=== PATIENT | male | born 1965 | race Caucasian/White ===

== ENCOUNTER 2021-03-11 14:36 | Outpatient (REF) | payer OTHER, SELFPAY ==
--- NOTE | ~2021-03-11 | US_ITS ---
EXAMINATION: US VENOUS ULTRASOUND WITH DOPPLER LOWER EXTREMITY, LEFT CLINICAL INFORMATION: Pain in left lower leg COMPARISON: None TECHNIQUE: Ultrasound of the deep veins is performed from the hip to the calf with compression sonography and color and pulse Doppler assessment. Spectral analysis with color-flow imaging is performed. FINDINGS: There is thrombus identified in the peroneal and posterior tibial veins and are noncompressible in this region. The thrombus begins at the tibioperoneal trunk and extends distally into the calf. There is normal venous compression and respiratory variation and augmented flow in the remaining portions of the veins. The visualized common femoral vein, superficial femoral vein, profunda femoral vein, popliteal vein shows no evidence of deep venous thrombosis. There is no significant popliteal fossa cyst. If the patient's symptoms persist, followup ultrasound in 5 days 7 days might be of value to exclude proximal propagation from a non-visualized calf vein. US/US venous duplex LE IMPRESSION: Thrombus identified in the peroneal and posterior tibial veins and are noncompressible in this region. Thrombus begins at the tibioperoneal trunk and extends distally into the calf. This critical result was discussed with DR MOLINA by telephone on 03/11/2021 3:52 PM and it was ascertained that the content and urgency of the report was understood at the time of direct communication.
[2021-03-11 15:18] LABS: D Dimer 3355 NG/ML
== END 2021-03-11 14:37 | disposition home or self-care (01) ==
LOC: HO.US 14:36
PROVIDERS: PCP Family Medicine; Visit Provider Family Medicine
DX: M79.662 Pain in left lower leg (principal); M79.89 Other specified soft tissue disorders
CPT/HCPCS: 36415; 85379; 93971

== ENCOUNTER 2021-03-11 16:16 | Emergency (ER) | payer OTHER, SELFPAY ==
[2021-03-11 16:31] VITALS: BP 146/97; PULSE 100; RESP 18; TEMP 36.4; O2SAT 95; BMI 25.7
--- NOTE | 2021-03-11 17:07 | ED.LOWEXIN ---
HPI - Extremity Injury (Lower) General Chief Complaint: Extremity Injury, Lower Stated Complaint: blood clot Time Seen by Provider: 03/11/21 17:07 Source: patient Mode of arrival: ambulatory Limitations: no limitations History of Present Illness HPI Narrative: 55-year-old male came in for evaluation of left leg pain. This is a 55-year-old male was recently hospitalized at [facility] was treated for pneumonia/COVID infection, patient spent 6 days in the hospital then was discharged on oxygen. Started to notice pain and swelling along the left calf area. Patient was sent to the emergency department to rule out DVT by ultrasound. Related Data Home Medications Medication Instructions Recorded Confirmed acetaminophen 500 mg tablet 1,000 mg PO Q6H PRN 03/11/21 (Tylenol Extra Strength) aspirin 81 mg chewable tablet 81 mg PO DAILY 03/11/21 (Aspirin Childrens) ibuprofen 200 mg capsule 800 mg PO Q6H PRN cap 03/11/21 Previous Rx's Medication Instructions Recorded apixaban 5 mg (74 tabs) tablets in 5 mg PO PER PKG DIR #74 ea 03/11/21 a dose pack (Eliquis DVT-PE Treat 30D Start) Allergies Allergy/AdvReac Type Severity Reaction Status Date / Time No Known Allergies Allergy Verified 03/11/21 13:07 Review of Systems Review of Systems: All other systems are reviewed and are negative Constitutional: Reports as per HPI and Reports no additional constitutional complaints Eyes: Reports as per HPI and Reports no additional eye complaints Reports system reviewed and no additional complaints, except as documented Cardiovascular: Reports as per HPI and Reports no additional cardiovascular complaints Respiratory: Reports as per HPI and Reports no additional respiratory complaints Gastrointestinal: Reports as per HPI and Reports no additional gastrointestinal complaints Genitourinary: Reports no additional female genitourinary complaints Musculoskeletal: Reports no additional musculoskeletal complaints Skin/Breast: Reports system reviewed and no additional complaints, except as docu Psychiatric: Reports no additional psychiatric complaints Endocrine: Reports no additional endocrine complaints Hematologic/Lymphatic: Reports no additional hematologic/lymphatic complaints Allergic/Immunologic: Reports no additional allergic/immunologic complaints Reports system reviewed and no additional complaints, except as documented and Reports Abnormal speech present [facility] Past Medical History Medical History COVID-19 Social History Social History Advance Directives: No Advance Directives Information Provided: No Physical Exam Vital Signs: Vital Signs: Last Vital Signs Temp 97.5 F 03/11/21 16:31 Pulse 100 03/11/21 16:31 Resp 18 03/11/21 16:31 BP 146/97 H 03/11/21 16:31 Pulse Ox 95 03/11/21 16:31 Body Mass Index 25.7 Vital signs have been reviewed as appeared to be correct. Blood pressure normal. Heart rate normal. Respiration rate normal. Temperature normal. Oxygen saturation normal. Appearance: Alert. Oriented X3. No acute distress. Head: Normal external exam. Normocephalic. Atraumatic. No Nation signs noted. No raccoon eyes noted Eyes: PERRLA. EOMI. Conjunctiva and sclera normal. Eyelids normal. ENT: TM's Normal. Pharynx normal. Uvula midline. Moist mucous membranes. No trismus noted. No drooling noted. No muffled voice noted. Neck: Normal inspection. Neck supple. FROM. No adenopathy. Thyroid Normal. No meningeal signs. No neck mass noted. CVS: Normal heart rate and rhythm. Heart sound normal. No murmurs noted. Pulses normal throughout. Respiratory: No respiratory distress. Painless inspiration. Breath sounds normal. No wheezes/rales/rhonchi noted. Chest nontender. No accessory muscle usage noted or decreased air movement noted. Abdomen: Soft and nontender. Bowel sounds normal in all 4 quadrants. No distention noted. No organomegaly noted. No visible injury noted. Back: No CVA tenderness. Full range of motion noted. Skin: Skin warm and dry. Normal skin color. Normal skin turgor. No rashes/lesions/lacerations noted. Extremities: Left calf tenderness. Neuro: Oriented X 3. Cranial nerve exam: II-XII are grossly intact No motor deficit. No sensory deficit. Reflexes normal. Course Course Course Narrative: Assessment and plan. 55-year-old man came in with a left calf pain after 6 days of hospitalization, ultrasound revealed a DVT on the left side. Will start the patient on Eliquis and follow-up with PCP. MDM - Extremity Injury (Lower) Medical Records Attestation: I reviewed the patient's medical records. Imaging Data Left leg venous ultrasound: Radiologist's impression: Thrombus identified in the peroneal and posterior tibial veins and are noncompressible in this region. Thrombus begins at the tibioperoneal trunk and extends distally into the calf. ? Discharge Plan Discharge Clinical Impression: Deep venous thrombosis (DVT) of left peroneal vein Qualifiers: Chronicity: acute Qualified Code(s): I82.452 - Acute embolism and thrombosis of left peroneal vein Patient Disposition: Home, Self-Care Instructions: Deep Vein Thrombosis (ED) Prescriptions: Peterson Hopson DVT-PE Treat 30D Start 5 mg (74 tabs) tablets,dose pack 5 mg PO PER PKG DIR Qty: 74 RF: 0 No Action aspirin [Aspirin Childrens] 81 mg tablet,chewable 81 mg PO DAILY RF: 0 ibuprofen 200 mg capsule 800 mg PO Q6H PRNRF: 0 acetaminophen [Tylenol Extra Strength] 500 mg tablet 1,000 mg PO Q6H PRNRF: 0 Referrals: Hank Oglesby MD [Primary Care Provider] - 2 days
== END 2021-03-11 18:02 | disposition home or self-care (01) ==
PROVIDERS: Emergency Provider Emergency Medicine; PCP Family Medicine
DX: I82.452 Acute embolism and thrombosis of left peroneal vein (principal); M79.605 Pain in left leg; Z79.899 Other long term (current) drug therapy
CPT/HCPCS: 99283

== ENCOUNTER 2021-04-05 08:59 | Outpatient (REF) | payer OTHER, SELFPAY ==
--- NOTE | ~2021-04-05 | US_ITS ---
EXAMINATION: US TRIPLEX LOWER EXTREMITY, LEFT CLINICAL INFORMATION: History of peroneal and posterior tibial DVT. COMPARISON: March 11, 2021 TECHNIQUE: Color-flow triplex imaging with spectral analysis and compression Doppler were performed on the left lower extremity. FINDINGS: LEFT LEG: Common femoral vein: Compressible, normal color flow, normal augmentation. Proximal great saphenous vein: Patent, normal color flow. Profunda femoris vein: Patent, normal color flow. Femoral vein: Compressible, normal color flow, appropriate augmentation. Popliteal vein: Compressible, normal color flow, appropriate augmentation. Posterior tibial veins: Absent color flow . Noncompressible consistent with thrombosis. Peroneal veins: Absent color flow. Noncompressible consistent with thrombosis. There is no Wilson's cyst. US/US venous duplex LE LT IMPRESSION: Persistent left peroneal and posterior tibial DVT, not significantly changed from March 11, 2021.
== END 2021-04-05 09:00 | disposition home or self-care (01) ==
LOC: HO.HMGCX 08:59
PROVIDERS: PCP Family Medicine; Visit Provider Family Medicine
DX: I82.452 Acute embolism and thrombosis of left peroneal vein (principal); I82.442 Acute embolism and thrombosis of left tibial vein
CPT/HCPCS: 93971

== ENCOUNTER 2021-05-10 12:56 | Outpatient (REF) | payer OTHER, SELFPAY ==
--- NOTE | ~2021-05-10 | US_ITS ---
EXAMINATION: US VENOUS ULTRASOUND WITH DOPPLER LOWER EXTREMITY, LEFT CLINICAL INFORMATION: Left lower extremity pain. History peroneal and posterior tibial DVT left leg. COMPARISON: Left leg venous ultrasound 04/05/2021, 03/11/2021 TECHNIQUE: Ultrasound of the deep veins is performed from the hip to the calf with compression sonography and color and pulse Doppler assessment. Spectral analysis with color-flow imaging is performed. FINDINGS: There is normal venous compression and respiratory variation and augmented flow. The visualized common femoral vein, superficial femoral vein, profunda femoral vein, popliteal vein, and the trifurcation region shows no evidence of deep venous thrombosis. The prior DVT is no longer demonstrated. There is no popliteal fossa cyst. US/US venous duplex LE LT IMPRESSION: No DVT demonstrated in the left lower extremity.
== END 2021-05-10 12:57 | disposition home or self-care (01) ==
LOC: HO.US 12:56
PROVIDERS: PCP Family Medicine; Visit Provider Internal Medicine Medical Oncology
DX: I82.409 Acute embolism and thrombosis of unspecified deep veins of unspecified lower extremity (principal); M79.605 Pain in left leg; R60.0 Localized edema
CPT/HCPCS: 93971